=== PATIENT | male | born 1955 | race Caucasian/White ===

== ENCOUNTER 2022-07-11 14:32 | Emergency (ER) | payer MEDICARE, OTHER, SELFPAY ==
--- NOTE | ~2022-07-11 | CT_ITS ---
EXAMINATION: CT lumbar spine wo con DATE: 07/11/2022 16:40 INDICATION: Severe left lower back pain post fall TECHNIQUE: Computed tomography (CT) of the lumbar spine was performed without intravenous contrast. A utomated exposure control and iterative reconstruction technique were employed. The dose-length produ ct was 1354.74 mGy-cm. COMPARISON: None FINDINGS: L5 spondylolysis with bilateral chronic appearing pars intra-articular is defects and 1 mm anterolist hesis L5 on S1. 3 mm retrolisthesis L2 on L3 and L3-L4.. Chronic T11 and T12 compression fractures wi th 30% anterior vertebral body height loss at T11 and 15% anterior vertebral body height loss at T12. No acute fracture. Moderate disc height loss at L5-S1. Mild disc height loss at the remaining levels from T10 through L5 sparing L1-L2. Congenitally small central canal short pedicles at the lower thor acic and upper lumbar spine. Diffuse hepatic steatosis. 4 mm nonobstructing right renal stone. The fo llowing disc levels are specifically discussed: T11-T12: The disc does not extend beyond the endplate margin. There is mild bilateral facet joint ost eoarthritis. There is mild bilateral neural foraminal stenosis. There is mild central canal stenosis. T12-L1: Disc is bulging. There is mild right and moderate left facet joint osteoarthritis. There is m oderate bilateral neural foraminal stenosis. There is mild central canal stenosis. L1-L2: Disc is bulging. There is mild bilateral facet joint osteoarthritis. There is moderate bilater al neural foraminal stenosis. There is moderate central canal stenosis. L2-L3: Disc is bulging. There is mild bilateral facet joint osteoarthritis. There is moderate bilater al neural foraminal stenosis. There is mild to moderate central canal stenosis. L3-L4: Disc is bulging. There is mild bilateral facet joint osteoarthritis. There is moderate bilater al, right greater than left neural foraminal stenosis. There is moderate central canal stenosis. L4-L5: Disc is bulging. There is mild to moderate bilateral facet joint osteoarthritis. There is mode rate bilateral neural foraminal stenosis. There is mild central canal stenosis. L5-S1: Disc is bulging. There is moderate bilateral facet joint osteoarthritis along with bilateral L 5 pars intra-articular is defects. There is moderate bilateral neural foraminal stenosis. There also appears to be moderate to severe stenosis peripheral to the neural foramen where the nerve roots pass between the L5 pedicles and the disc and L5 inferior endplate osteophytes. There is no central canal stenosis. IMPRESSION: 1. No acute osseous abnormality. 2. 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 3. 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 Lower thoracic and upper lumbar spin e. 4. Nonobstructing 4 mm renal stone. Reviewed, dictated and finalized at location B. IMPRESSION: 1. No acute osseous abnormality. 2. 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 3. 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 Lower thoracic and upper lumbar spine. 4. Nonobstructing 4 mm renal stone.
[2022-07-11 14:39] VITALS: BP 135/83; PULSE 76; RESP 16; TEMP 36.5; O2SAT 96
--- NOTE | 2022-07-11 16:26 | ED.GENADULT ---
HPI - General Adult General Chief complaint: Back Pain/Injury Stated complaint: back pain Time Seen by Provider: 07/11/22 15:51 History of Present Illness HPI narrative: this is a pleasant gentleman presenting ED with lower back pain. The patient was in [place] on vacation when he slipped on some water and landed on his butt. He was okay that time but over the last week he has had progressively worse pain. He has taken a [place] and Flexeril with no relief. The patient denies urinary symptoms. Denies bowel incontinence. Denies saddle anesthesia. Patient goes to a pain clinic due to his chronic back pain and typically gets injections. He is unable to get in to see his Pain Clinic for another several weeks. He denies fever, chills, history of IV drug abuse or cancer. Related Data Allergies Allergy/AdvReac Type Severity Reaction Status Date / Time No Known Allergies Allergy Verified 11/10/18 02:40 Review of Systems Review of Systems: CONSTITUTIONAL: Denies night sweats. EYES: No eye pain ENT: Denies rhinorrhea CARDIOVASCULAR: Denies palpitations RESPIRATORY: Denies hemoptysis GASTROINTESTINAL: Denies hematemesis GENITOURINARY: Denies hematuria. SKIN: Denies rash MUSCULOSKELETAL: Denies myalgia. NEUROLOGIC: Denies weakness. PSYCHIATRIC: Denies delusions [facility] Social History Social History (Updated 07/11/22 @ 16:28 by Emigdio Molina MD) Social History: Patient drinks alcohol occasionally, denies tobacco or drug use Exam Narrative: APPEARANCE: No apparent distress. patient is standing in the room and pacing back and forth Head atraumatic. EYES: PERRLA/EOMI, NOSE: Normal no drainage NECK: Supple, Trachea midline RESPIRATORY: CTAB, No increased work of breathing. CARDIOVASCULAR: S1S2 appreciated ABDOMINAL: Soft, nontender, nondistended, MUSCULOSKELETAl: No obvious deformities, tenderness palpation over the left paralumbar muscles. No midline tenderness. Strength in lower extremities is intact. NEURO: Alert. Moving 4/4 extremities SKIN:: Warm, dry. Normal color PSYCHIATRIC: Normal affect Course Vital Signs Vital signs: Vital Signs Temperature 97.7 F 07/11/22 14:39 Pulse Rate 76 07/11/22 14:39 Respiratory Rate 16 07/11/22 14:39 Blood Pressure 135/83 07/11/22 14:39 Pulse Oximetry 96 07/11/22 14:39 Oxygen Delivery Room Air 07/11/22 14:39 Temperature 97.7 F 07/11/22 14:39 Pulse Rate 76 07/11/22 14:39 Respiratory Rate 16 07/11/22 14:39 Blood Pressure 135/83 07/11/22 14:39 Pulse Oximetry 96 07/11/22 14:39 Oxygen Delivery Room Air 07/11/22 14:39 Medical Decision Making MDM Narrative Medical decision making narrative: This 67-year-old male presenting ED with back pain. Started after he fell onto his glutes. CT L-spine has been ordered to evaluate for wedge compression fractures. Pain will be treated symptomatically. CT L-spine was interpreted as: MPRESSION: 1. No acute osseous abnormality. 2. 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 3. 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 Lower thoracic and upper lumbar spine. 4. Nonobstructing 4 mm renal stone. Upon re-evaluation the patient feels much better. He is walking around the room without difficulty. Patient is well connected to a neurosurgeon from previous evaluations/operations. He can follow-up with them on an outpatient basis. Vital Signs Vital Signs: Vital Signs Temperature 97.7 F 07/11/22 14:39 Pulse Rate 76 07/11/22 14:39 Respiratory Rate 16 07/11/22 14:39 Blood Pressure 135/83 07/11/22 14:39 Pulse Oximetry 96 07/11/22 14:39 Oxygen Delivery Room Air 07/11/22 14:39 Temperature 97.7 F 07/11/22 14:39 Pulse Rate 76 07/11/22 14:39 Respiratory Rate 16 07/11/22 14:39 Blood Pressure 135/83 07/11/22 14:39 Pulse Oximetry 96 07/11/22 14:39 Oxygen Delivery Room Air 07/11/22 14:3
[2022-07-11] MEDS: HYDROcodone/acetaminophen (*CRX) 10-325 MG TABLET 2 TAB PO (16:54)
[2022-07-11] MEDS: diazePAM INJ (*CRX) 10 MG/2 ML SYRINGE 5 MG IM (16:55)
[2022-07-11] MEDS: LIDOCAINE 5% PATCH 1 PATCH TRANSDERM (17:29)
[2022-07-11] MEDS: KETOROLAC 15 MG/ML VIAL (*BKC) IV PUSH (17:29)
== END 2022-07-11 18:15 | disposition home or self-care (01) ==
PROVIDERS: Emergency Provider Emergency Medicine
DX: M54.9 Dorsalgia, unspecified (principal); G89.29 Other chronic pain; M43.07 Spondylolysis, lumbosacral region; M47.816 Spondylosis without myelopathy or radiculopathy, lumbar region; N20.0 Calculus of kidney; W01.0XXA Fall on same level from slipping, tripping and stumbling without subsequent striking against object, initial encounter
CPT/HCPCS: 72131; 96372; 96374; 99284; A9270; J1885; J3360